=== PATIENT | male | born 1995 | race Caucasian/White ===

== ENCOUNTER 2018-07-01 16:02 | Emergency (ER) | payer OTHER ==
[2018-07-01 16:17] VITALS: BP 127/91
--- NOTE | 2018-07-01 16:29 | EDPHY ---
H & P Stated Complaint: inj lateral l foot running on treadmill Time Seen by Provider: 07/01/18 16:24 HPI/ROS: Chief Complaint: Left foot pain HPI: The patient presents to the ED with left foot pain after he inverted his ankle while running on a treadmill. He felt a pop. He denies any associated pain in his ankle, knee or back. He denies additional acute complaints. REVIEW OF SYSTEMS: Neuro: no headache, numbness, weakness Musculoskeletal: as above Skin: no abrasion or lacerations Source: Patient Exam Limitations: No limitations - Personal History Current Tetanus Diphtheria and Acellular Pertussis (TDAP): Yes - Medical/Surgical History Hx Asthma: No Hx Chronic Respiratory Disease: No Hx Diabetes: No Hx Cardiac Disease: No Hx Renal Disease: No Hx Cirrhosis: No Hx Alcoholism: No Hx HIV/AIDS: No Hx Splenectomy or Spleen Trauma: No Other PMH: APPENDECTOMY - Social History Smoking Status: Never smoked - Physical Exam Exam: General: No acute distress Left foot: Tenderness to palpation over the base of the 5th metatarsal. Neuro: Sensation intact to light touch, normal motor function Vascular: Normal capillary refill Constitutional: Initial Vital Signs Temperature (C) 36.7 C 07/01/18 16:15 Heart Rate 94 07/01/18 16:15 Respiratory Rate 18 07/01/18 16:15 Blood Pressure 127/91 H 07/01/18 16:15 O2 Sat (%) 99 07/01/18 16:15 O2 Delivery Mode Room Air Allergies/Adverse Reactions: Penicillins Allergy (Verified 04/29/16 16:09) Home Medications: Medication Instructions Recorded NK [No Known Home Meds] 07/01/18 Medical Decision Making - Diagnostics Imaging Results: Left foot x-ray: Images reviewed by myself: Negative for acute fracture. ED Course/Re-evaluation: Patient presents to the ED for evaluation of left foot pain following an inversion injury. The patient was noted to be neurologically intact. X-rays demonstrate no evidence of an obvious fracture. The patient will be discharged home with a Boyd boot. He is advised to follow up with Orthopedic surgery for any unimproved symptoms as this may be the sign of an injury not noted on the x-ray today. Differential Diagnosis: Differential diagnosis considered includes fracture, sprain, dislocation Departure - Departure Disposition: Home, Routine, Self-Care Clinical Impression: Foot sprain Qualifiers: Encounter type: initial encounter Laterality: left Qualified Code(s): S93.602A - Unspecified sprain of left foot, initial encounter Condition: Good Instructions: Foot Sprain (ED) Additional Instructions: 1. Take Ibuprofen or Motrin 600 mg by mouth three times a day. 2. Follow up with the orthopedic surgeon you have been referred to for pain which persists past 5-7 days as this may be the sign of an injury not noted on the x-ray today. 3. Wear Boyd boot as needed for comfort 4. There is no evidence of an obvious fracture noted on the x-ray today. Referrals: Chandrakant Klein MD [Medical Doctor] - As per Instructions
== END 2018-07-01 17:26 | disposition home or self-care (01) ==
DX: S93.602A Unspecified sprain of left foot, initial encounter (principal); Y93.A1 Activity, exercise machines primarily for cardiorespiratory conditioning